=== PATIENT | female | born 1970 | race African-American/Black ===

== ENCOUNTER 2017-04-21 11:15 | Emergency (ER) | payer OTHER ==
[~2017-04-21] VITALS: Ht 162.6 cm; Wt 90.7 kg
--- NOTE | ~2017-04-21 | CR229 ---
[facility] A Service of [facility] & [facility] RADIOLOGY TEXT RESULTS PATIENT: LORA MAYERS LOCATION: CFTX : 70 UNIT #: [id number] AGE: [address]: Hilaria Johnson APRN SEX: F ORDER DR: [id number] [facility] [address] [place], [place] [address] [id number] E MR#: [id number] Acc #: [id number] NAME: LORA MAYERS : 1970 SEX: F STUDY DATE/TIME: 04/21/2017 12:15 UNIT: [facility] ROOM: STUDY DESCRIPTION: CR Shoulder Min 2 View Lt Attending Physician: Hilaria Johnson A.P.R.N. Ordering Physician: Maryann Sutherland P.A.-C. Primary Care Physician: No Primary Care Physician MEDICAL IMAGING REPORT This report is preliminary unless electronic signature is present EXAM Left shoulder, 04/21/2017, 1215 hours. CLINICAL HISTORY Shoulder pain. A cooling fan fell on the patient today. COMPARISON None. FINDINGS AP views in internal-external rotation and a scapula Y-view demonstrate mild degenerative change. No fracture or dislocation. The upper ribs are intact. IMPRESSION Minimal degenerative change. No fracture or dislocation. Dictated by... Lyssa Avilez M.D. THIS IS AN ELECTRONICALLY VERIFIED REPORT Lyssa Avilez M.D. at 04/21/2017 10:33 PM MEDINA/christelle TD: 04/21/2017 15:28 JOB #: [id number] MEDICAL IMAGING REPORT Page 1 of 1 COPY
--- NOTE | ~2017-04-21 | CR150 ---
[facility] A Service of [facility] & [facility] RADIOLOGY TEXT RESULTS PATIENT: LORA MAYERS LOCATION: CFTX : 70 UNIT #: [id number] AGE: [address]: Hilaria Johnson APRN SEX: F ORDER DR: [id number] [facility] [address] [place], [place] [address] [id number] E MR#: [id number] Acc #: [id number] NAME: LORA MAYERS : 1970 SEX: F STUDY DATE/TIME: 04/21/2017 12:20 UNIT: [facility] ROOM: STUDY DESCRIPTION: CR Hip Min 2 Views Lt Attending Physician: Hilaria Johnson A.P.R.N. Ordering Physician: Maryann Sutherland P.A.-C. Primary Care Physician: Primary Care Physician No MEDICAL IMAGING REPORT This report is preliminary unless electronic signature is present EXAM Left hip, 04/21/2017 12:20 hours HISTORY Ceiling fan fell on patient today, hip pain. COMPARISON None FINDINGS AP pelvis and frog lateral view left hip demonstrate no hip fracture or significant degenerative change. There is mild spurring at both sacroiliac joints. Numerous phleboliths are seen in the pelvis. No foreign body. IMPRESSION 1. No fracture or dislocation. 2. Sclerotic degenerative change at the sacroiliac joints. 3. Multiple phleboliths in the pelvis. Dictated by... Lyssa Avilez M.D. THIS IS AN ELECTRONICALLY VERIFIED REPORT Lyssa Avilez M.D. at 04/21/2017 10:33 PM Aristides TD: 04/21/2017 15:15 JOB #: [id number] MEDICAL IMAGING REPORT Page 1 of 1 COPY
--- NOTE | ~2017-04-21 | CR181 ---
[facility] A Service of [facility] & [facility] RADIOLOGY TEXT RESULTS PATIENT: LORA MAYERS LOCATION: CFTX : 70 UNIT #: [id number] AGE: [address]: Hilaria Johnson APRN SEX: F ORDER DR: [id number] [facility] [address] [place], [place] [address] [id number] E MR#: [id number] Acc #: [id number] NAME: LORA MAYERS : 1970 SEX: F STUDY DATE/TIME: 04/21/2017 1224 UNIT: [facility] ROOM: STUDY DESCRIPTION: CR Lumbar Spine 2 or 3 Views Attending Physician: Hilaria Johnson A.P.R.N. Ordering Physician: Maryann Sutherland P.A.-C. Primary Care Physician: No Primary Care Physician MEDICAL IMAGING REPORT This report is preliminary unless electronic signature is present EXAM Lumbar spine series 04/21/2017 1224 hours CLINICAL HISTORY A ceiling fan fell on the patient today, low back pain. 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 Vertebral body and disc heights are normal. No fracture seen. 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 This is an anatomic variant similar to 09/24/2007. There is no fracture, disc height loss or subluxation. Dictated by... Lyssa Avilez M.D. THIS IS AN ELECTRONICALLY VERIFIED REPORT Lyssa Avilez M.D. at 04/21/2017 10:33 PM Cain TD: 04/21/2017 15:18 JOB #: [id number] MEDICAL IMAGING REPORT Page 1 of 1 COPY
--- NOTE | ~2017-04-21 | CR58 ---
[facility] A Service of [facility] RADIOLOGY TEXT RESULTS PATIENT: LORA MAYERS LOCATION: CFTX : 70 UNIT #: [id number] AGE: [address]: Hilaria Johnson APRN SEX: F ORDER DR: [id number] [facility] [address] [place], [place] [address] [id number] E MR#: [id number] Acc #: [id number] NAME: LORA MAYERS : 1970 SEX: F STUDY DATE/TIME: 04/21/2017 12:07 UNIT: [facility] ROOM: STUDY DESCRIPTION: CR Cervical Spine 2 or 3 Views Attending Physician: Hilaria Johnson A.P.R.N. Ordering Physician: Maryann Sutherland P.A.-C. Primary Care Physician: No Primary Care Physician MEDICAL IMAGING REPORT This report is preliminary unless electronic signature is present EXAM Cervical spine, 3 view series. INDICATIONS Patient hit ceiling fan, patient today with neck pain. FINDINGS AP and lateral projections of the cervical spine show satisfactory preservation of the cervical lordosis. The cervical soft tissues are normal. All anterior and posterior elements in the cervical area are anatomically normal without identifiable fracture, dislocation, malignant lytic or sclerotic change, or arthritis. There is no congenital defect apparent. IMPRESSION Normal cervical spine. Dictated by... Gurdeep Ogden M.D. THIS IS AN ELECTRONICALLY VERIFIED REPORT Gurdeep Ogden M.D. at 04/22/2017 8:36 AM AIMEE/christelle TD: 04/21/2017 15:19 JOB #: [id number] MEDICAL IMAGING REPORT Page 1 of 1 COPY
--- NOTE | ~2017-04-21 | CR94 ---
[facility] A Service of [facility] & [facility] RADIOLOGY TEXT RESULTS PATIENT: LORA MAYERS LOCATION: CFTX : 70 UNIT #: [id number] AGE: [address]: Hilaria Johnson APRN SEX: F ORDER DR: [id number] [facility] [address] [place], [place] [address] [id number] E MR#: [id number] Acc #: [id number] NAME: LORA MAYERS : 1970 SEX: F STUDY DATE/TIME: 04/21/2017 12:39 UNIT: [facility] ROOM: STUDY DESCRIPTION: CR Elbow Min 3 Views Rt Attending Physician: Hilaria Johnson A.P.R.N. Ordering Physician: Maryann Sutherland P.A.-C. Primary Care Physician: No Primary Care Physician MEDICAL IMAGING REPORT This report is preliminary unless electronic signature is present EXAM Right elbow 04/21/2017 HISTORY 46-year-old female with right elbow pain after ceiling fan fell on patient today. COMPARISON Right forearm 09/24/2007 FINDINGS Three views of the right elbow demonstrate no acute fracture or dislocation. No joint effusion. Soft tissues are unremarkable. IMPRESSION Unremarkable right elbow. Dictated by... Ignacio Loco M.D. THIS IS AN ELECTRONICALLY VERIFIED REPORT Ignacio Loco M.D. at 04/24/2017 1:19 PM Prosper TD: 04/21/2017 15:31 JOB #: [id number] MEDICAL IMAGING REPORT Page 1 of 1 COPY
--- NOTE | ~2017-04-21 | CR127 ---
[facility] A Service of [facility] & [facility] RADIOLOGY TEXT RESULTS PATIENT: LORA MAYERS LOCATION: [place] : 70 UNIT #: [id number] AGE: [address]: Hilaria Johnson APRN SEX: F ORDER DR: [id number] [facility] [address] [place], [place] [address] [id number] E MR#: [id number] Acc #: [id number] NAME: LORA MAYERS : 1970 SEX: F STUDY DATE/TIME: 04/21/2017 1219 UNIT: [facility] ROOM: STUDY DESCRIPTION: CR Foot Complete Min 3 View Rt Attending Physician: Hilaria Johnson A.P.R.N. Ordering Physician: Maryann Sutherland P.A.-C. Primary Care Physician: No Primary Care Physician MEDICAL IMAGING REPORT This report is preliminary unless electronic signature is present EXAM Right foot 3 views 04/21/2017 1219 hours CLINICAL HISTORY Ceiling fan fell on the patient today, foot pain. COMPARISON None. FINDINGS AP, lateral and oblique views demonstrate normal bone density. There is no fracture or dislocation. IMPRESSION Negative right foot. Dictated by... Lyssa Avilez M.D. THIS IS AN ELECTRONICALLY VERIFIED REPORT Lyssa Avilez M.D. at 04/21/2017 10:33 PM Cain TD: 04/21/2017 15:12 JOB #: [id number] MEDICAL IMAGING REPORT Page 1 of 1 COPY
--- NOTE | ~2017-04-21 | CR20 ---
[facility] A Service of [facility] & [facility] RADIOLOGY TEXT RESULTS PATIENT: LORA MAYERS LOCATION: [facility] : 70 UNIT #: [id number] AGE: [address]: Hilaria Johnson APRN SEX: F ORDER DR: [id number] [facility] [address] [place], [place] [address] [id number] E MR#: [id number] Acc #: [id number] NAME: LORA MAYERS : 1970 SEX: F STUDY DATE/TIME: 04/21/2017 1217 UNIT: [facility] ROOM: STUDY DESCRIPTION: CR Ankle Min 3 Views Lt Attending Physician: Hilaria Johnson A.P.R.N. Ordering Physician: Maryann Sutherland P.A.-C. Primary Care Physician: No Primary Care Physician MEDICAL IMAGING REPORT This report is preliminary unless electronic signature is present EXAM Left ankle 3 views 04/21/2017 1217 hours CLINICAL HISTORY Ceiling fan fell on the patient. Ankle pain. COMPARISON None. FINDINGS AP, lateral and oblique views demonstrate no fracture or dislocation. IMPRESSION Negative left ankle. Dictated by... Lyssa Avilez M.D. THIS IS AN ELECTRONICALLY VERIFIED REPORT Lyssa Avilez M.D. at 04/21/2017 10:33 PM Cain TD: 04/21/2017 15:10 JOB #: [id number] MEDICAL IMAGING REPORT Page 1 of 1 COPY
== END 2017-04-21 13:37 | disposition home or self-care (01) ==
LOC: CFTX 11:15 → CED 11:15 → CFTX 12:49
DX: S13.4XXA Sprain of ligaments of cervical spine, initial encounter (principal); S33.5XXA Sprain of ligaments of lumbar spine, initial encounter; S10.93XA Contusion of unspecified part of neck, initial encounter; S30.0XXA Contusion of lower back and pelvis, initial encounter; S40.022A Contusion of left upper arm, initial encounter; S90.31XA Contusion of right foot, initial encounter; I10 Essential (primary) hypertension; W20.8XXA Other cause of strike by thrown, projected or falling object, initial encounter
CPT/HCPCS: 29260; 29540; 72040; 72100; 73030; 73080; 73502; 73610; 73630; 99283